=== PATIENT | female | born 1970 | race Caucasian/White ===

== ENCOUNTER 2020-12-13 15:14 | Outpatient (REF) | payer BC, SELFPAY ==
[2020-12-13 16:22] LABS: Alanine Aminotransferase 21 U/L (0-31); Albumin Level 4.6 g/dL (3.5-5.0); Alkaline Phosphatase 66 U/L (39-117); Aspartate Amino Transferase 16 U/L (5-31); Bilirubin Direct < 0.2 mg/dL (0.0-0.5); Bilirubin Total 0.2 mg/dL (0.0-1.0); Total Protein 6.9 g/dL (6.5-8.0)
== END 2020-12-13 15:15 | disposition home or self-care (01) ==
LOC: HO.LAB 15:14
PROVIDERS: Visit Provider Psychiatry & Neurology Neurology
DX: C71.9 Malignant neoplasm of brain, unspecified (principal)
CPT/HCPCS: 36415; 80076

== ENCOUNTER 2022-05-15 14:18 | Outpatient (REF) | payer BC, SELFPAY ==
--- NOTE | ~2022-05-15 | MR_ITS ---
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 COMPARISON: 12/05/2016 MRI TECHNIQUE: Multiplanar, multisequence MRI of the brain was obtained before and after the intravenous administration of 6.5 mL Gadavist. FINDINGS: DWI sequence demonstrates no restricted diffusion to suggest acute or subacute cerebral ischemia. Redemonstrated is evidence of a previous left frontoparietal craniotomy, with cystic encephalomalacia in the left parietal and posterior frontal regions consistent with a resection cavity, minimally increased in size from previous exam. The degree of surrounding parenchymal T2 hyperintensity is stable. There appears to be some communication with the left lateral ventricle as noted on previous study suggesting some degree of postoperative porencephaly. Redemonstrated is a ribbon-like focus of enhancement at its lateral margin similar in appearance to the previous exam with no significant interval change and a nodular focus of enhancement more anteroinferiorly along the lateral margin of this cavity stable in appearance. On image 95 of series 12, there is a 1.2 mm focus of nodular enhancement which is a new finding along the posterior margin of the resection cavity. Note that comparison to the previous study for this particular finding is limited as thin section postcontrast T1 gradient echo imaging was not performed on the prior exam. Scattered small foci of susceptibility-weighted artifact are seen at the periphery of this cavitary region, some of which are unchanged with others being new and others being less prominent than on the previous exam. The remainder of the brain demonstrates no pathologic enhancement. There is nonspecific FLAIR/T2 signal hyperintensity seen in the periaqueductal pugh matter with no associated abnormal enhancement of indeterminate significance. This finding can be associated with Wernicke's encephalopathy but can also be associated with migraines. Normal signal voids are seen in the visualized major intracranial vessels. The ventricular system is grossly unchanged in appearance without hydrocephalus. A few nonspecific small nonenhancing white matter T2 hyperintensities are seen in the right cerebral hemisphere, some of which are seen on previous exam. Osseous structures appear grossly otherwise intact. MR/MR head/brain wo/w con IMPRESSION: 1. Findings consistent with previous tumor resection in the left parietal region as described above with a slight increase in size of the resection cavity and stable surrounding T2 hyperintensity with stable band-like and nodular enhancement at its lateral margin. There is a punctate new focus of enhancement along its posterolateral margin which is difficult to compare to the previous study as thin section postcontrast imaging was not performed on the prior exam. Follow-up MRI of the brain recommended with contrast in 6 months to reassess to exclude recurrent tumor. 2. Periaqueductal nonenhancing T2 hyperintensity stable from previous study is a nonspecific finding. This finding can be associated with Wernicke's encephalopathy but can also be associated with migraines. 3. A few nonenhancing punctate T2 hyperintensities in the right cerebral white matter which are nonspecific.
== END 2022-05-15 14:19 | disposition home or self-care (01) ==
LOC: HO.MRI 14:18
PROVIDERS: Visit Provider Psychiatry & Neurology Neurology
DX: C71.9 Malignant neoplasm of brain, unspecified (principal)
CPT/HCPCS: 70553; A9585

== ENCOUNTER 2022-10-12 15:00 | Outpatient (RCR) | payer BC, SELFPAY ==
--- NOTE | 2022-09-21 17:06 | MHC.PT.EP ---
[facility] [place] [facility] [place] [facility] [place] [facility] [address] Nicko Ríos [address] [phone] F: [phone] F: [phone] F: [phone] F: [phone] Physical Therapy Plan of Care Date of Evaluation: Date of Surgery: Diagnosis: RIGHT Leg weakness Assessment: Patient is a 51 y.o. female who is referred to PT by Dr. Fred MD, with Dx of RIGHT leg weakness. She demonstrates difficulty with balance and proprioception as well due to hx of brain cancer with surgery 20 yrs prior. Patient impairments include weakness, impaired balance and reduced proprioception.Patient current functional limitations are driving, prolonged ambulation, prolonged standing, challenge with balance. Patient will benefit from skilled PT to address aforementioned impairments and functional limitations to meet established goals. Frequency and Duration: The patient will be seen 2x/week for 4 weeks Short Term Goals: 2 weeks Patient demonstrates consistency and independence with HEP to self manage symptoms. Care Home Goals: 4 weeks patient presents with increased R ankle DF 5/5 to be able to ambulate long distance in grocery story without fatigue. Patient presents with increased R single leg balance 5 seconds unaided safely to improve balance during gait. Treatment Plan: Modalities to reduce pain, spasms and effusion. Manual therapy to restore motion and function. Therapeutic exercise to improve strength and flexibility. Neuromuscular re-education for posture and balance. Therapeutic activities to return to functional activities of daily living. Electronically signed by: Yousif Ag, PT, DPT Please sign and return to therapist. Thank you for your referral.
== END 2022-11-17 14:45 | disposition home or self-care (01) ==
LOC: HO.PT 15:00
PROVIDERS: Visit Provider Psychiatry & Neurology Neurology
DX: M62.81 Muscle weakness (generalized) (principal)
CPT/HCPCS: 97112; 97162

== ENCOUNTER 2023-03-28 14:56 | Outpatient (REF) | payer BC, SELFPAY ==
--- NOTE | ~2023-03-28 | MM_ITS ---
EXAMINATION: MM SCREENING DIGITAL BREAST TOMOSYNTHESIS, BILATERAL CLINICAL INFORMATION: Screening. Asymptomatic. COMPARISON: Mammography: This study is compared with prior exams dating back to 2016. TECHNIQUE: Digital breast tomosynthesis is performed in both the craniocaudal and mediolateral oblique views along with computer-aided detection (CAD). Synthesized 2D images are generated from the tomosynthesis. FINDINGS: The breasts are heterogeneously dense, which may obscure small masses (ACR BI-RADS breast composition Category c). There are no significant masses, abnormal calcifications, or other abnormalities. MM/MM tomosynthesis screening BI IMPRESSION: No mammographic evidence of malignancy. ASSESSMENT: BI-RADS BI-RADS 1 - Negative RECOMMENDATION: Routine annual mammography screening. 1 year F/U This examination should not preclude the clinical evaluation of a suspicious palpable abnormality. This patient's information was entered into a reminder system with a target due date for their next mammogram.
== END 2023-03-28 14:57 | disposition home or self-care (01) ==
LOC: HO.MAMMO 14:56
PROVIDERS: Visit Provider Family Medicine
DX: Z12.31 Encounter for screening mammogram for malignant neoplasm of breast (principal)
CPT/HCPCS: 77063; 77067

== ENCOUNTER → 2023-03-28 15:30 | Outpatient (BNV) | payer BC, SELFPAY | PROVIDERS: Visit Provider Radiology Diagnostic Radiology | DX: Z12.31 Encounter for screening mammogram for malignant neoplasm of breast (principal) | CPT/HCPCS: 77063; 77067 ==

== ENCOUNTER 2024-04-02 14:33 | Outpatient (REF) | payer BC, SELFPAY ==
--- NOTE | ~2024-04-02 | MM_ITS ---
EXAMINATION: MM SCREENING DIGITAL BREAST TOMOSYNTHESIS, BILATERAL CLINICAL INFORMATION: Screening. Asymptomatic. COMPARISON: Mammography: Comparison is made with available priors TECHNIQUE: Digital breast mammography with tomosynthesis is performed in both the craniocaudal and mediolateral oblique views along with computer-aided detection (CAD). FINDINGS: The breasts are heterogeneously dense, which may obscure small masses (ACR BI-RADS breast composition Category c). There are no significant masses, abnormal calcifications, or other abnormalities. MM/MM tomosynthesis screening BI IMPRESSION: No mammographic evidence of malignancy. ASSESSMENT: BI-RADS BI-RADS 1 - Negative RECOMMENDATION: Routine annual mammography screening. 1 year F/U This examination should not preclude the clinical evaluation of a suspicious palpable abnormality. This patient's information was entered into a reminder system with a target due date for their next mammogram. Electronically signed by: Nel Coleman DO 04/14/2024 05:34 PM EDT
== END 2024-04-02 14:34 | disposition home or self-care (01) ==
LOC: HO.MAMMO 14:33
PROVIDERS: PCP Family Medicine; Visit Provider Family Medicine
DX: Z12.31 Encounter for screening mammogram for malignant neoplasm of breast (principal)
CPT/HCPCS: 77063; 77067

== ENCOUNTER → 2024-04-02 15:00 | Outpatient (BNV) | payer BC, SELFPAY | PROVIDERS: PCP Family Medicine; Visit Provider Internal Medicine | DX: Z12.31 Encounter for screening mammogram for malignant neoplasm of breast (principal) | CPT/HCPCS: 77063; 77067 ==

== ENCOUNTER 2025-02-12 15:45 | Outpatient (AMB) | payer BC, SELFPAY ==
--- NOTE | 2025-02-12 15:47 | A.OFFVIS_ITS ---
Vital Signs 02/12/25 16:11 Blood Pressure Location Rt brachial Position Sitting Intake Visit Reasons: sooner appt Allergies phenytoin (Dilantin) Allergy (Unknown, Verified 12/14/14 00:00) topiramate (From TOPAMAX) Allergy (Unknown, Unverified 03/04/20 18:02) UNKNOWN From DILANTIN Allergy (Unknown, Uncoded 03/04/20 18:02) RASH Medication List - Last Reconciled 02/12/25 by Mary Ibarra MD amitriptyline 50 mg (2 x 25 mg) PO BEDTIME zrkfdejoll-jslvwyckerjyq-xlmh 50-325-40 mg 1 tab orally 1-2 a day as needed PRN; 30 days divalproex 500 mg PO BID vibegron 75 mg PO DAILY HPI Comments Details: 54 years old woman who I initially saw in 2010. 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 She had been clinically stable for number of years. MRI of brain had revealed slight enhancement. She moved to this area from [facility] where she had these treatments. The patient is a 54-year-old female presenting with recurrent headaches and insomnia. She reports that her migraines occur almost daily, with limited relief from the current dose of amitriptyline 25 mg nightly, which she has been taking inconsistently before bedtime. She has experienced difficulty sleeping. A past attempt to take a higher dose resulted in severe daytime sleepiness. Adjustments to her medication schedule are under consideration to alleviate symptoms better. She has essential hypertension with variable home readings reaching 160/XX, often in stressful scenarios or concurrent illnesses like a previous right ear infection, which did not reveal residual issues during today's evaluation. No consistent antihypertensive therapy has been followed, although there is a need for further cardiovascular evaluation per her primary physician's notes. She described facial drooping associated with migraines and seeks both headache management and hypertension evaluation. She was advised to follow up regarding cardiology consultation and will maintain current treatments with reviewed alterations based on today's visit. Review of Systems Const Details: - Neurological: Reports headaches almost daily, lousy sleep quality. Denies hallucinations or other neurologic deficits. - ENT: Reports history of right ear infection, currently resolved. Denies ear pain or discharge at present. - Cardiovascular: Reports hypertension with high blood pressure readings, no current medications. - General: Denies changes in weight or appetite. Reports grogginess when taking medications late. Physical Exam Neuro Other: Mental Status: She is alert and awake with decreased spontaneity and fluency of speech. Comprehension is intact. Cranial Nerves: CN II: Visual william full to confrontation, visual acuity intact. CN III, IV, : Pupils equal, round, reactive to light and accommodation. Extraocular movements are normal. CN V: Facial sensation is normal. CN VII: Facial movements symmetrical. CN VIII: Hearing intact to bedside conversation is normal. CN IX, X: Palate elevates symmetrically. CN XI: Shoulder shrug and head turn symmetrical. CN XII: Tongue midline without atrophy or fasciculations. Moderately slow cautious gait. Extrapyramidal: Full facial expressions and blinking. No rigidity. Movements are appropriate with no tremor or abnormality. Speech: Normal; no dysarthria or tremor. Assessment & Plan Assessment & Plan (1) Anaplastic astrocytoma of brain: Comment: MRI brain [place] [facility] [place] 2022: NO difference from her scan in 2017 MRI brain WO at Jan 2015: Left parietal large are of gliosis, encephalomalacia with no sig diff from previous scan. EEG at office in Apr 2018: breech rhythm Code(s): C71.9 - Malignant neoplasm of brain, unspecified Category: Medical (2) Complex partial seizure disorder: Code(s): G40.209 - Localization-related (focal) (partial) symptomatic epilepsy and epileptic syndromes with complex partial seizures, not intractable, without status epilepticus Category: Medical (3) Migraine: Code(s): G43.909 - Migraine, unspecified, not intractable, without status migrainosus Category: Medical Qualifiers: Migraine type: migraine (< 15 days per month) without aura Status migrainosus presence: without status migrainosus Intractability: not intractable Qualified Code(s): G43.009 - Migraine without aura, not intractable, without status migrainosus (4) Anxiety disorder: Code(s): F41.9 - Anxiety disorder, unspecified Category: Medical Qualifiers: Anxiety disorder type: due to known physiological condition Qualified Code(s): F06.4 - Anxiety disorder due to known physiological condition (5) Spastic bladder: Code(s): N32.89 - Other specified disorders of bladder Category: Medical (6) Hypertension: Code(s): I10 - Essential (primary) hypertension Category: Medical Qualifiers: Hypertension type: unspecified Qualified Code(s): I10 - Essential (primary) hypertension Plan Impression: a: Remote h/o of cerebral anaplastic astrocytoma in remission b: Large area of left hemispheric encephalomalacia from above c: Mild right sided weakness and mild aphasia from above d: Complex partial seizure disorder e: Migraine f: Spastic bladder g: HTN Management: a: Divalproex acid ER 500mg, two tabs at bedtime b: Fiorecet PRN for headaches, 12 a month c: Try amitryptiline 25mg one at bedtime for migraine d: Vibegron 75mg one at bedtime for bladder issues e: Propranalol 20mg, 1/2, bid f: Refer to cardiology at [facility] where she has seen a assembler installer structures a few years ago Orders: Orders Valproate Today G40.209 - Localization-related (focal) (partial) symptomatic epilepsy and epileptic syndromes with complex partial seizures, not intractable, without status epilepticus Liver Panel Today G40.209 - Localization-related (focal) (partial) symptomatic epilepsy and epileptic syndromes with complex partial seizures, not intractable, without status epilepticus Referrals Cardiology Referral I10 - Essential (primary) hypertension Medications: New divalproex 500 mg PO BID 180 tabs 1RF uswqrnoviw-jcvkbmqccumvs-mmiy 50-325-40 mg 1 tab orally 1-2 a day as needed PRN; 14 tabs 2RF pain 30 days vibegron 75 mg PO DAILY 90 tabs 0RF propranolol 10 mg (1/2 x 20 mg) PO BID 60 tabs 0RF amitriptyline 25 mg PO BEDTIME 90 tabs 0RF Coding Level of Care Code Est Pt Level 5 (18489) Diagnoses Anaplastic astrocytoma of brain C71.9 Complex partial seizure disorder G40.209 Migraine without aura and without status migrainosus, not intractable G43.009 Migraine type: migraine (< 15 days per month) without aura Status migrainosus presence: without status migrainosus Intractability: not intractable Anxiety disorder due to known physiological condition F06.4 Anxiety disorder type: due to known physiological condition Spastic bladder N32.89 Hypertension, unspecified type I10 Hypertension type: unspecified
--- OUTSIDE RECORDS SUMMARY | 2025-02-12 16:08 | XMS_ITS | Clinical Summary ---
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 Per neuro 3 Active amoxicillin-clav ulanate (AUGMENTIN) 875-125 mg per tablet Take 1 tablet by mouth 2 (two) times a day. 4 Active divalproex (DEPAKOTE ER) 500 mg 24 hr tablet Take 2 tablets (1,000 mg total) by mouth at bedtime. Active omeprazole (PriLOSEC) [address] capsule Take 1 capsule (40 mg total) by mouth 1 (one) time each day. 8 Active MELATONIN ORAL Take by mouth at bedtime as needed. Active BLACK COHOSH ORAL Take by mouth. 3 Active multivitamin with minerals (CENTRUM/CERTAVI T) 18-400 mg-mcg tablet tablet Take by mouth. Active omega-3 (FISH OIL) 360-1,200 mg capsule Take by mouth. 3 Active Gemtesa 75 mg tablet tablet Take 1 tablet (75 mg total) by mouth 1 (one) time each day. 5 Active levothyroxine (SYNTHROID, LEVOTHROID) 75 mcg tabletIndication s:Hypothyroidism , unspecified type Take 1 tablet (75 mcg total) by mouth 1 (one) time each day. 90 tablet 2 5 Active oxyBUTYnin (DITROPAN) 5 mg tablet Take 1 tablet (5 mg total) by mouth 2 (two) times a day. 180 tablet 1 5 01/28/20 25 Discontinu ed(Therapy completed) levothyroxine (SYNTHROID, LEVOTHROID) 75 mcg tablet Take 1 tablet (75 mcg total) by mouth 1 (one) time each day. 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 DDx adherence stone; will f/u with ultrasound in 1 y Agraphia 07/05/2021 Hemianopsia 07/05/2021 Endometrial hyperplasia without atypia 1 Overview (05/29/2024): Being scheduled for a hyst Anxiety disorder 11/19/2015 Migraine 11/19/2015 Sinus tachycardia 11/19/2015 Encounters Date Type Department Care Team Description 01/27/2025 3:30 PM EDT Office Visit Adult Medicine [address] [phone] Mayra Torres MD Routine general medical examination at a health care facility (Primary Dx); Hypothyroidism, unspecified type; Hx of colonic polyp; History of astrocytoma of brain; Seizure disorder, secondary (CMS/HCC V24, CMS/HCC V28); Primary hypertension; Overactive bladder from Last 3 Months Immunizations Name Administration Dates Next Due Influenza Quadravalent, MDCK , 0.5ml, preservative free (Flucelvax) 6mo and older 03/22/2023,04/14/2021,03/03/2020,2016 Influenza Quadrivalent, 0.5m l, preservative free (Fluarix; FluLaval; Fluzone) ages 6mo and older (Afluria) 3yo and older 03/23/2022,03/14/2019,02/22/2018 Influenza trivalent, 0.5mL, preservative free (Fluarix; FluLaval; Fluzone) ages 6mo and older (Afluria) 3 years and older 01/21/2021,03/14/2019,02/22/2018 Influenza trivalent, with preservative (Fluzone; Afluria) 6mo and older 01/21/2021,02/28/2016 Moderna (age 6mo & older) Bi valent, COVID-19, 0.5 mL or 0.25 mL dosage 04/11/2022 Moderna Covid-19 Bivalent, O riginal + Ba.1 (Non-US Tradename Spikevax Bivalent) 04/11/2022 Moderna SARS-CoV-2 COVID-19, mRNA, LNP-S, preservative free 04/11/2022,06/09/2021 Tdap Tetanus diptheria acell ular pertussis (Boostrix; Adacel) 7yo and older 05/10/2020 Surgical History Surgery Date Site/Laterality Comments OTHER SURGICAL HISTORY 2001 PROCEDURE: SC CRANIOT TEMPORAL LOBE W/O ELECTROCORTICOGRAPHY; COMMENT: shara knife excision of astrocytoma TUBAL LIGATION 2006 PROCEDURE: HISTORICAL TUBAL LIGATION; COMMENT: Adiana tubal occlusion Medical History Medical History Date Comments Grade IV astrocytoma ([facility]/ C V24, [facility] V28) 2001 DX:Grade IV astrocytoma ([facility] ); COMMENT: parietal, frontal, three times, 2 surgeries, 2 gamma knife, 10 months of chemotherapy,2 months of radiation Seizure disorder, secondary ([facility] V24, [facility] V28) DX:Seizure disorder, seconda ry (HCC) Hypothyroidism DX:Hypothyroidis m GERD (gastroesophageal reflux disease) DX:GERD (gastroesophageal reflux disease) Insomnia DX:Insomnia Anxiety disorder 11/19/2015 DX:Anxiety diso rder Migraine 11/19/2015 DX:Migraine Hemianopsia 07/05/2021 DX:Hemianopsia 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 Family History Medical History Relation Name Comments Bladder Cancer Brother Diabetes Brother Prostate cancer Brother Heart attack Father in mid 70's- [facility] Breast cancer Maternal Grandmother Diabetes Maternal Grandmother Diabetes Mother Other: ovarian cyst Mother Thyroid disease Mother Relation Name Status Comments Brother Alive Father Maternal Grandfather Maternal Grandmother breast cancer Mother Paternal Grandfather Paternal Grandmother Social History Tobacco Use Types Packs/Day Years Used Date Smoking Tobacco: Never Smokeless Tobacco: Never Alcohol Use Standard Drinks/Week Comments Yes 0 (1 standard drink = 0.6 oz pur e alcohol) Comments No Sex and Gender Information Value Date Recorded Sex Assigned at Not on file Legal Sex Female 9:51 PM EST Gender Identity Not on file Sexual Orientation Not on file Obstetrics History Last Filed Vital Signs Vital Sign Reading Time Taken Comments Blood Pressure 156/83 01/27/2025 3:30 PM EDT Pulse 97 01/27/2025 3:30 PM EDT Temperature 36.3 C (97.4 F) 01/27/2025 3:30 PM EDT Respiratory Rate 16 01/27/2025 3:30 PM EDT Oxygen Saturation - - Inhaled Oxygen Concentration - - Weight 66 kg (145 lb 6.4 oz) 01/27/2025 3:30 PM EDT Height 162 cm (5' 3.78 ) 01/27/2025 3:30 PM EDT Body Mass Index 25.13 01/27/2025 3:30 PM EDT Plan of Treatment Upcoming Encounters Date Type Department Care Team (Late st Contact Info) Description 07/31/2025 3:30 PM EST Office Visit Adult Medicine - [address] [phone] Luis Miguel Moreira PA [address] [place] [address] Health Maintenance Due Date Last Done Comments Hepatitis B Vaccines (1 of 3 - 19+ 3-dose series) 11/15/1987 Pneumococcal Vaccine: 50+ Years (1 of 2 - PCV) 11/15/1987 Zoster Vaccines (1 of 2) 11/15/1987 HIV Screening 05/27/2022 Hepatitis C Screening 05/27/2022 Social Influencers of Health Screening 05/27/2022 Depression Screening 06/18/2024 Cervical Cancer Screening: HPV 09/01/2024 09/02/2019 Influenza Vaccine (#1) 2025 3, 03/23/2022, 04/14/2021, Additional history exists Hypertension/CHF/CAD Annual BMP Blood Test 09/25/2025 09/25/2024, 09/26/2023 Colorectal Cancer Screening: Colonoscopy 11/26/2025 11/26/2020 Breast Cancer Screening 05/07/2026 05/07/2024 Cholesterol Screening (Lipid Panel) 09/25/2029 09/25/2024, 09/26/2023 DTaP,Tdap,and Td Vaccines (2 - Td or Tdap) 05/10/2030 05/10/2020 COVID-19 Vaccine Completed 10/04/2024, 10/2023, 03/31/2023, Additional history exists HIB Vaccines Aged Out No longer eligi ble based on patient's age to complete this topic HPV Vaccines Aged Out No longer eligi ble based on patient's age to complete this topic Hepatitis A Vaccines Aged Out No long er eligible based on patient's age to complete this topic IPV Vaccines Aged Out No longer eligi ble based on patient's age to complete this topic MMR Vaccines Aged Out No longer eligi ble based on patient's age to complete this topic Meningococcal ACWY Vaccine Aged Out N o longer eligible based on patient's age to complete this topic Meningococcal B Vaccine Aged Out No l onger eligible based on patient's age to complete this topic RSV Immunization Patients Under 20 months Aged Out No longer eligible based on patient's age to complete this topic Varicella Vaccines Aged Out No longer eligible based on patient's age to complete this topic Procedures Procedure Name Priority Date/Time Associated Diagnosis Comments COMPREHENSIVE METABOLIC PANEL Routine 09/25/2024 4:14 PM EDT Hypothyroidism, unspecified type Elevated blood pressure reading Bloating Hx of colonic polyp Screening for cardiovascular condition LIPID PANEL WITH REFLEX TO DIRECT LDL Routine 09/25/2024 4:14 PM EDT Hypothyroidism, unspecified type Elevated blood pressure reading Bloating Hx of colonic polyp Screening for cardiovascular condition COLONOSCOPY Routine 11/26/2020 HPV Routine 09/02/2019 from Last 3 Months or Most Recently Relevant to Health Maintenance Results * (ABNORMAL) Lipid panel with reflex to direct LDL (09/25/2024 4:14 PM EDT) Cholesterol 198 0 - 200 mg/dL LAB CHEMISTRY METHOD 09/25/2024 6:55 PM EDT [facility] Triglycerides 169(H) 0 - 150 mg/dL LAB CHEMISTRY METHOD 09/25/2024 6:55 PM EDT [facility] HDL 77 >=40 mg/dL LAB CHEMISTRY METHOD 09/25/2024 6:55 PM EDT [facility] LDL Calculated 87 0 - 100 mg/dL LAB CHEMISTRY METHOD 09/25/2024 6:55 PM EDT [facility] VLDL Cholesterol Kiran 33.8 mg/dL LAB CHEMISTRY METHOD 09/25/2024 6:55 PM EDT [facility] Non HDL Chol. (LDL+VLDL) 121 <145 mg/dL LAB CHEMISTRY METHOD 09/25/2024 6:55 PM EDT [facility] Chol/HDL Ratio 2.6 0.0 - 4.4 LAB CHEMISTRY METHOD 09/25/2024 6:55 PM EDT [facility] Blood Venous blood specimen / Unknown Venipuncture / Unknown 09/25/2024 4:14 PM EDT 09/25/2024 4:14 PM EDT us Mayra Torres MD LAB BLOOD ORDERABLES F inal Result [facility] [address] [place] [address], [place] [phone] * (ABNORMAL) Comprehensive metabolic panel (09/25/2024 4:14 PM EDT) Sodium 136 133 - 145 mmol/L LAB CHEMISTRY METHOD 09/25/2024 6:55 PM [facility] Potassium 4.5 3.5 - 5.5 mmol/L LAB CHEMISTRY METHOD 09/25/2024 6:55 PM [facility] Chloride 100 96 - 110 mmol/L LAB CHEMISTRY METHOD 09/25/2024 6:55 PM [facility] CO2 30 21 - 32 mmol/L LAB CHEMISTRY METHOD 09/25/2024 6:55 PM [facility] Anion Gap 6 3 - 11 LAB CHEMISTRY METHOD 09/25/2024 6:55 PM [facility] Glucose 105(H) 70 - 100 mg/dL LAB CHEMISTRY METHOD 09/25/2024 6:55 PM [facility] BUN 17 5 - 25 mg/dL LAB CHEMISTRY METHOD 09/25/2024 6:55 PM [facility] Creatinine 0.75 0.50 - 1.10 mg/dL LAB CHEMISTRY METHOD 09/25/2024 6:55 PM [facility] eGFR 94 >=60 mL/min/1. 73m2 LAB CHEMISTRY METHOD 09/25/2024 6:55 PM [facility] Comment:Calculation based on the Chronic Kidney Disease Epidemiology Collaboration (CKD-EPI) equation refit without adjustment for race. BUN/Creatinine Ratio 22.7 LAB CHEMISTRY METHOD 09/25/2024 6:55 PM [facility] Calcium 10.0 8.5 - 10.5 mg/dL LAB CHEMISTRY METHOD 09/25/2024 6:55 PM [facility] AST (SGOT) 16 10 - 42 unit/L LAB CHEMISTRY METHOD 09/25/2024 6:55 PM EDT [facility] ALT (SGPT) 36 10 - 60 unit/L LAB CHEMISTRY METHOD 09/25/2024 6:55 PM EDT [facility] Alkaline Phosphatase 104 42 - 121 unit/L LAB CHEMISTRY METHOD 09/25/2024 6:55 PM EDT [facility] Total Protein 7.6 6.0 - 8.0 g/dL LAB CHEMISTRY METHOD 09/25/2024 6:55 PM EDT [facility] Albumin 4.3 3.2 - 5.0 g/dL LAB CHEMISTRY METHOD 09/25/2024 6:55 PM EDT [facility] Total Bilirubin 0.2 0.0 - 1.4 mg/dL LAB CHEMISTRY METHOD 09/25/2024 6:55 PM EDT [facility] Blood Venous blood specimen / Unknown Venipuncture / Unknown 09/25/2024 4:14 PM EDT 09/25/2024 4:14 PM EDT Mayra Torres MD LAB BLOOD ORDERABLES F inal Result [facility] [address] [place] [address], * Colonoscopy (11/26/2020) Pathologist [facility] Colonoscopy abnormal, abstracted Anatomical Region Laterality Modality Other Historical Provider HEALTH MAINTENANCE Final Result * Cervical Cancer Screening: HPV (09/02/2019) Pathologist [facility] Cervical Cancer Screening: HPV negative, abstracted us Historical Provider HEALTH MAINTENANCE Final Result from Last 3 Months or Most Recently Relevant to Health Maintenance Insurance [facility] 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
--- OUTSIDE RECORDS SUMMARY | 2025-02-12 16:08 | XMS_ITS | Encounter Summary ---
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 Lead Architect Name Role Phone Mayra Torres MD Primary Care Provider Encounter Details Date Type Department Care Team (Late st Contact Info) Description 05/20/2024 Telephone Adult Medicine - [address] [phone] Mayra Torres MD [address] [place] [address] Social History Tobacco Use Types Packs/Day Years Used Date Smoking Tobacco: Never Smokeless Tobacco: Never Alcohol Use Standard Drinks/Week Comments Yes 0 (1 standard drink = 0.6 oz pur e alcohol) Comments Unknown Sex and Gender Information Value Date Recorded Sex Assigned at Not on file Legal Sex Female 9:51 PM EST Gender Identity Not on file Sexual Orientation Not on file documented as of this encounter Progress Notes * Devon Turcios - 05/20/2024 3:56 PM EST Refills on Current Medication List MED NAME: pended PREFERRED PHARMACY: No Pharmacies Listed Patient would like script to be: E-PRESCRIBED/FAXED TO [facility] WHEN WAS THE PATIENT'S LAST APPOINTMENT IN ADULT MEDICINE? 03/27/24 WHEN WAS THE LAST TIME THE PATIENT SAW THEIR PCP? Same as above Does patient have an upcoming appointment? Yes 09/25/24 (THE MEDICATION REQUESTED IS ON THE MED LIST ABOVE) All of the medications requested were on the CURRENT MEDS list Did you check the Pharmacy information above?: yes Patient wants: 90-day supply Is this a mail order prescription request?: no If the refill is from a FAXED refill request what is the RX # listed on the fax? not applicable Patients current insurance carrier is: Payor: / No coverage found. Insurance ID #: @[id number]@ documented in this encounter Plan of Treatment Upcoming Encounters Date Type Department Care Team (Late st Contact Info) Description 07/31/2025 3:30 PM EST Office Visit Adult Medicine - [place] [address] [place] [address] Luis Miguel Moreira PA [address] [place] [address] documented as of this encounter Visit Diagnoses Not on filedocumented in this encounter Care Teams Java Lead Architect Relationship Specialty Start Date End Date Mayra Torres MD [address] [address] PCP - General Internal Medicine 07/15/21 documented as of this encounter
--- OUTSIDE RECORDS SUMMARY | 2025-02-12 16:08 | XMS_ITS ---
Author Name [facility] Organization Unknown Care Team Organization Name Specialty Phone Email Start Date End Juan Velasco 11/18/2022 [facility]
== END 2025-02-12 16:20 | disposition home or self-care (01) ==
LOC: HO.HSM 15:46
PROVIDERS: PCP Family Medicine; Visit Provider Psychiatry & Neurology Neurology
DX: C71.9 Malignant neoplasm of brain, unspecified (principal); G40.209 Localization-related (focal) (partial) symptomatic epilepsy and epileptic syndromes with complex partial seizures, not intractable, without status epilepticus; G43.009 Migraine without aura, not intractable, without status migrainosus; F06.4 Anxiety disorder due to known physiological condition; N32.89 Other specified disorders of bladder; I10 Essential (primary) hypertension
CPT/HCPCS: 99215

== ENCOUNTER 2025-02-12 15:45 | Outpatient (REF) | payer BC, SELFPAY ==
[2025-02-12 17:46] LABS: Alanine Aminotransferase 29 U/L (0-31); Albumin Level 5.0 g/dL (3.5-5.0); Alkaline Phosphatase 86 U/L (39-117); Aspartate Amino Transferase 24 U/L (5-31); Total Protein 7.5 g/dL (6.5-8.0)
== END 2025-02-12 15:46 | disposition home or self-care (01) ==
LOC: HO.LAB 15:45
PROVIDERS: PCP Family Medicine; Visit Provider Psychiatry & Neurology Neurology
DX: G40.209 Localization-related (focal) (partial) symptomatic epilepsy and epileptic syndromes with complex partial seizures, not intractable, without status epilepticus (principal); C71.9 Malignant neoplasm of brain, unspecified; F41.9 Anxiety disorder, unspecified; N32.89 Other specified disorders of bladder; I10 Essential (primary) hypertension; G43.009 Migraine without aura, not intractable, without status migrainosus; F06.4 Anxiety disorder due to known physiological condition
CPT/HCPCS: 36415; 80076; 80164

== ENCOUNTER 2025-04-08 15:44 | Outpatient (AMB) | payer BC, SELFPAY ==
--- NOTE | 2025-04-08 16:10 | A.OFFVIS_ITS ---
Vital Signs 04/08/25 16:20 Height 5 ft 2 in Weight 140 lb BMI 25.6 BP 175/100 H Intake Visit Reasons: 6mnth brain tumor Allergies phenytoin (Dilantin) Allergy (Unknown, Verified 12/14/14 00:00) topiramate (From TOPAMAX) Allergy (Unknown, Unverified 03/04/20 18:02) UNKNOWN From DILANTIN Allergy (Unknown, Uncoded 03/04/20 18:02) RASH HPI Comments Details: 54 years old woman who I initially saw in 2010. 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 She had been clinically stable for number of years. MRI of brain had revealed slight enhancement. She moved to this area from [facility] where she had these treatments. She is presenting with headaches and elevated blood pressure. She experiences daily headaches, which occur unexpectedly and resolve quickly. The patient typically uses Excedrin for management. Hypertension is exacerbated by white coat syndrome, with blood pressure in clinical settings measuring 130/60 mmHg at home. She has a detailed history of hypertension with previously prescribed propranolol at 10 mg twice daily. Adjustments to her regimen include a new prescription for long-acting propranolol 60 mg daily. This prescription follows historically elevated blood pressure, correlating with her brain cancer diagnosis in early adulthood. The patient reports ongoing auditory issues and will consult an ENT in the coming month. Her exercise routine remains consistent, supporting her overall health. [facility] Medical History (Updated 04/08/25 @ 16:11 by Mary Ibarra MD) Complex partial seizure disorder Migraine Review of Systems Narrative - Neurological: Reports sporadic headaches. - Cardiovascular: Reports elevated blood pressure in clinical settings; normal readings at home. - Ears/Nose/Throat: Reports hearing impairment and ongoing ear problems. - Musculoskeletal: Reports using a cane when necessary. - Medications: Reports current medications include Depakote ER, propranolol, and amitriptyline. Physical Exam Neuro Other: Mental Status: She is alert and awake with decreased spontaneity and fluency of speech. Speech is slow but she comprehends. Cranial Nerves: CN II: Visual william full to confrontation, visual acuity intact. CN III, IV, : Pupils equal, round, reactive to light and accommodation. Extraocular movements are normal. CN V: Facial sensation is normal. CN VII: Facial movements symmetrical. CN VIII: Hearing intact to bedside conversation is normal. CN IX, X: Palate elevates symmetrically. CN XI: Shoulder shrug and head turn symmetrical. CN XII: Tongue midline without atrophy or fasciculations. Gait is slow and cautious with a cane. Extrapyramidal: Full facial expressions and blinking. No rigidity. Movements are appropriate with no tremor or abnormality. Speech: Normal; no dysarthria or tremor. Assessment & Plan Assessment & Plan (1) Anaplastic astrocytoma of brain: Comment: [place] brain [place] [facility] [place]: NO difference from her scan in 2017 MRI brain WO at Jan 2015: Left parietal large are of gliosis, encephalomalacia with no sig diff from previous scan. EEG at office in Apr 2018: breech rhythm Code(s): C71.9 - Malignant neoplasm of brain, unspecified Category: Medical (2) Complex partial seizure disorder: Code(s): G40.209 - Localization-related (focal) (partial) symptomatic epilepsy and epileptic syndromes with complex partial seizures, not intractable, without status epilepticus Category: Medical Qualifiers: Epilepsy type: partial symptomatic Intractability: not intractable Status epilepticus: without status epilepticus Qualified Code(s): G40.209 - Localization-related (focal) (partial) symptomatic epilepsy and epileptic syndromes with complex partial seizures, not intractable, without status epilepticus (3) Migraine: Code(s): G43.909 - Migraine, unspecified, not intractable, without status migrainosus Category: Medical Qualifiers: Migraine type: migraine (< 15 days per month) without aura Status migrainosus presence: without status migrainosus Intractability: not intractable Qualified Code(s): G43.009 - Migraine without aura, not intractable, without status migrainosus (4) Anxiety disorder: Code(s): F41.9 - Anxiety disorder, unspecified Category: Medical Qualifiers: Anxiety disorder type: due to known physiological condition Qualified Code(s): F06.4 - Anxiety disorder due to known physiological condition Plan Impression: a: Remote h/o of cerebral anaplastic astrocytoma in remission b: Large area of left hemispheric encephalomalacia from above c: Mild right sided weakness and mild aphasia from above d: Complex partial seizure disorder e: Migraine f: Spastic bladder g: HTN Management: a: Divalproex acid ER 500mg, two tabs at bedtime b: Fiorecet PRN for headaches, 12 a month c: Try amitryptiline 25mg one at bedtime for migraine d: Vibegron 75mg one at bedtime for bladder issues e: Propranalol ext release 60mg one at night I discussed with the patient the implications of managing her blood pressure with a long-acting formulation of propranolol due to her variable measurements, especially in clinical settings. We reviewed the efficacy of her current headache relieve measures, acknowledging the ongoing presence of headaches and proceeding with Excedrin as preferred. The patient has an upcoming appointment with the ENT to address ear problems which may contribute to her auditory symptoms. The patient?s known history of brain cancer and hypertension puts emphasis on regular monitoring of all symptoms and medication efficacy to prevent potential complications. We talked about the importance of consulting with her primary care physician for consistent hypertension management. Medications: New divalproex ER (Depakote ER) 1,000 mg (2 x 500 mg) PO DAILY 180 tabs 1RF propranolol ER (Inderal LA) 60 mg PO BEDTIME 90 caps 0RF Discontinued divalproex Discontinued Reason: Doctor's Order 500 mg PO BID 180 tabs 1RF propranolol Discontinued Reason: Doctor's Order 10 mg PO BID 180 tabs 0RF Coding Level of Care Code Est Pt Level 5 (78691) Diagnoses Anaplastic astrocytoma of brain C71.9 Partial symptomatic epilepsy with complex partial seizures, not intractable, without status epilepticus G40.209 Epilepsy type: partial symptomatic Intractability: not intractable Status epilepticus: without status epilepticus Migraine without aura and without status migrainosus, not intractable G43.009 Migraine type: migraine (< 15 days per month) without aura Status migrainosus presence: without status migrainosus Intractability: not intractable Anxiety disorder due to known physiological condition F06.4 Anxiety disorder type: due to known physiological condition
[2025-04-08 16:20] VITALS: BP 175/100; BMI 25.6
--- OUTSIDE RECORDS SUMMARY | 2025-04-08 21:54 | XMS_ITS | Clinical Summary ---
Author Organization [facility] [address] [facility] lding Address [address] [place] [address] Phone Care Team Providers Care Oracle Consultant Name Role Phone Mayra Torres MD Primary Care Provider Allergies Active Allergy Reactions Criticality Noted Date Comments Phenytoin Rash Medium 12/15/2013 Topiramate 12/15/2013 Eye pain Medications amitriptyline (ELAVIL) 25 mg tablet Take 1 Tablet by mouth at bedtime. Per neuro 03/22/2023 Active amoxicillin-clav ulanate (AUGMENTIN) 875-125 mg per tablet Take 1 tablet by mouth 2 (two) times a day. 09/19/2023 Active divalproex (DEPAKOTE ER) 500 mg 24 hr tablet Take 2 tablets (1,000 mg total) by mouth at bedtime. Active omeprazole (PriLOSEC) [address] capsule Take 1 capsule (40 mg total) by mouth 1 (one) time each day. 01/08/2018 Active MELATONIN ORAL Take by mouth at bedtime as needed. Active BLACK COHOSH ORAL Take by mouth. 03/22/2023 Active multivitamin with minerals (CENTRUM/CERTAVI T) 18-400 mg-mcg tablet tablet Take by mouth. Active omega-3 (FISH OIL) 360-1,200 mg capsule Take by mouth. 03/22/2023 Active Gemtesa 75 mg tablet tablet Take 1 tablet (75 mg total) by mouth 1 (one) time each day. 12/15/2024 Active levothyroxine (SYNTHROID, LEVOTHROID) 75 mcg tabletIndication s:Hypothyroidism , unspecified type Take 1 tablet (75 mcg total) by mouth 1 (one) time each day. 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/29/2024): parietal, frontal Now [...] 3:30 PM EDT Office Visit Adult Medicine [address] [phone] Mayra Torres MD Routine general medical examination at a health care facility (Primary Dx); Hypothyroidism, unspecified type; Hx of colonic polyp; History of astrocytoma of brain; Seizure disorder, secondary (CMS/HCC V24, CMS/HCC V28); Primary hypertension; Overactive bladder from Last 3 Months Immunizations Immunization Administration Dates Next Due Influenza Quadravalent, MDCK [...] Site/Laterality Comments OTHER SURGICAL HISTORY 2001 PROCEDURE: [place] CRANIOT TEMPORAL LOBE W/O ELECTROCORTICOGRAPHY; COMMENT: shara knife excision of astrocytoma TUBAL LIGATION 2006 PROCEDURE: HISTORICAL TUBAL LIGATION; COMMENT: Adiana tubal occlusion Medical History Medical History Date Comments Grade IV astrocytoma (CMS/ C V24, [facility] V28) 2001 DX:Grade IV astrocytoma ([facility] ); COMMENT: parietal, frontal, three times, 2 surgeries, 2 gamma knife, 10 months of chemotherapy,2 months of radiation Seizure disorder, secondary (CMS/HCC V24, [facility] V28) DX:Seizure disorder, seconda ry ([facility]) Hypothyroidism DX:Hypothyroidis m GERD (gastroesophageal reflux disease) DX:GERD (gastroesophageal reflux disease) Insomnia DX:Insomnia Anxiety disorder 11/19/2015 DX:Anxiety diso rder Migraine 11/19/2015 DX:Migraine Hemianopsia 07/05/2021 DX:Hemianopsia 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 Family History Medical History Relation Name Comments Bladder Cancer Brother Diabetes Brother Prostate cancer Brother Heart attack Father in mid 70's- [facility] Breast cancer Maternal Grandmother Diabetes [...] PM EST Office Visit Adult Medicine - [address] [phone] Luis Miguel Moreira, [place] [address] [place] [address] Health Maintenance Due Date Last Done Comments [...] (2 - Td or Tdap) 05/10/2030 05/10/2020 RSV Immunization Adult Patients (1 - 1-dose 75+ series) 11/15/2043 COVID-19 Vaccine Completed 10/04/2024, 10/2023, 03/31/2023, Additional [...] LAB CHEMISTRY METHOD 09/25/2024 6:55 PM EDT [facility] Triglycerides 169(H) 0 - 150 mg/dL LAB CHEMISTRY METHOD 09/25/2024 6:55 PM EDT [facility] HDL 77 >=40 mg/dL LAB CHEMISTRY METHOD 09/25/2024 6:55 PM EDT [facility] LDL Calculated 87 0 - 100 mg/dL LAB CHEMISTRY METHOD 09/25/2024 6:55 PM EDT [facility] VLDL Cholesterol Kiran 33.8 mg/dL LAB CHEMISTRY METHOD 09/25/2024 6:55 PM EDT [facility] Non HDL Chol. (LDL+VLDL) 121 <145 mg/dL LAB CHEMISTRY METHOD 09/25/2024 6:55 PM EDT [facility] Chol/HDL Ratio 2.6 0.0 - 4.4 LAB CHEMISTRY METHOD 09/25/2024 6:55 PM EDT [facility] Blood Venous blood specimen / Unknown Venipuncture / Unknown 09/25/2024 4:14 PM EDT 09/25/2024 4:14 PM EDT us Mayra Torres MD LAB BLOOD ORDERABLES F inal Result [facility] [address] [place] [address], * (ABNORMAL) Comprehensive metabolic panel (09/25/2024 4:14 PM EDT) Pathologist [facility] [place] Sodium 136 133 - 145 mmol/L LAB CHEMISTRY METHOD 09/25/2024 6:55 PM EDT [facility] Potassium 4.5 3.5 - 5.5 mmol/L LAB CHEMISTRY METHOD 09/25/2024 6:55 PM [facility] Chloride 100 96 - 110 mmol/L LAB CHEMISTRY METHOD 09/25/2024 6:55 PM [facility] CO2 30 21 - 32 mmol/L LAB CHEMISTRY METHOD 09/25/2024 6:55 PM [facility] Anion Gap 6 3 - 11 LAB CHEMISTRY METHOD 09/25/2024 6:55 PM [facility] Glucose 105(H) 70 - 100 mg/dL LAB CHEMISTRY METHOD 09/25/2024 6:55 PM [facility] BUN 17 5 - 25 mg/dL LAB CHEMISTRY METHOD 09/25/2024 6:55 PM [facility] Creatinine 0.75 0.50 - 1.10 mg/dL LAB CHEMISTRY METHOD 09/25/2024 6:55 PM [facility] eGFR 94 >=60 mL/min/1. 73m2 LAB CHEMISTRY METHOD 09/25/2024 6:55 PM [facility] Comment:Calculation based on the Chronic Kidney Disease Epidemiology Collaboration (CKD-EPI) equation refit without adjustment for race. BUN/Creatinine Ratio 22.7 LAB CHEMISTRY METHOD 09/25/2024 6:55 PM [facility] Calcium 10.0 8.5 - 10.5 mg/dL LAB CHEMISTRY METHOD 09/25/2024 6:55 PM [facility] AST (SGOT) 16 10 - 42 unit/L LAB CHEMISTRY METHOD 09/25/2024 6:55 PM [facility] ALT (SGPT) 36 10 - 60 unit/L LAB CHEMISTRY METHOD 09/25/2024 6:55 PM [facility] Alkaline Phosphatase 104 42 - 121 unit/L LAB CHEMISTRY METHOD 09/25/2024 6:55 PM [facility] Total Protein 7.6 6.0 - 8.0 g/dL LAB CHEMISTRY METHOD 09/25/2024 6:55 PM EDT [facility] Albumin 4.3 3.2 - 5.0 g/dL LAB CHEMISTRY METHOD 09/25/2024 6:55 PM EDT [facility] Total Bilirubin 0.2 0.0 - 1.4 mg/dL LAB CHEMISTRY METHOD 09/25/2024 6:55 PM EDT [facility] Blood Venous blood specimen / Unknown Venipuncture / Unknown 09/25/2024 4:14 PM EDT 09/25/2024 4:14 PM EDT Mayra Torres MD LAB BLOOD ORDERABLES F inal Result [facility] [address] [place] [address], * Colonoscopy (11/26/2020) [facility] Colonoscopy abnormal, abstracted Anatomical Region Laterality Modality Other Historical Provider HEALTH MAINTENANCE Final Result * Cervical Cancer Screening: HPV (09/02/2019) [facility] Cervical Cancer Screening: HPV negative, abstracted Historical Provider HEALTH MAINTENANCE Final Result from Last 3 Months or Most Recently Relevant to Health Maintenance Insurance [facility] [[email or web address]] Care Teams Oracle Consultant Relationship Specialty Start Date End Date Mayra Torres MD [address] [place] [id number] PCP - General Internal Medicine 07/15/21
--- OUTSIDE RECORDS SUMMARY | 2025-04-08 21:54 | XMS_ITS | Encounter Summary ---
Author Organization [place] [address] Care Team Providers Care Human Resource Intern Name Role Phone Mayra Torres MD Primary Care Provider Encounter Details Date Type Department Care Team (Late st Contact Info) Description 05/20/2024 Telephone Adult Medicine - [address] [phone] Mayra Torres MD [address] [place] [address] Social History Tobacco Use Types Packs/Day Years [...] PM EST Office Visit Adult Medicine - [place] [address] [place] [address] Luis Miguel Moreira PA [address] [place] [address] documented as of this encounter Visit Diagnoses Not on filedocumented in this encounter Care Teams Human Resource Intern Relationship Specialty Start Date End Date Mayra Torres MD [address] [id number] PCP - General Internal Medicine 07/15/21 documented as of this encounter
== END 2025-04-08 16:28 | disposition home or self-care (01) ==
LOC: HO.HSM 15:45
PROVIDERS: PCP Family Medicine; Referring Provider Internal Medicine; Visit Provider Psychiatry & Neurology Neurology
DX: C71.9 Malignant neoplasm of brain, unspecified (principal); G40.209 Localization-related (focal) (partial) symptomatic epilepsy and epileptic syndromes with complex partial seizures, not intractable, without status epilepticus; G43.009 Migraine without aura, not intractable, without status migrainosus; F06.4 Anxiety disorder due to known physiological condition
CPT/HCPCS: 99214